=== PATIENT | male | born 1940 | race Caucasian/White ===

== ENCOUNTER 2019-01-10 13:15 | Emergency (ER) | payer OTHER ==
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
[2019-01-10] MEDS ORDERED: DIPHTH,PERTUSS(ACELL),TET 0.5 ML DISP.SYRIN IM ONE ×2 (13:44→13:55)
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
[2019-01-10 13:48] VITALS: BP 190/92; PULSE 72; TEMP 98.6; BMI 26.2
== END 2019-01-10 15:01 | disposition home or self-care (01) ==
LOC: FER 13:15
PROC: 3E0234Z Introduction of Serum, Toxoid and Vaccine into Muscle, Percutaneous Approach (ICD-10-PCS; principal; 2019-01-10)
DX: Z04.1 Encounter for examination and observation following transport accident (principal); V03.10XA Pedestrian on foot injured in collision with car, pick-up truck or van in traffic accident, initial encounter; Y93.89 Activity, other specified; Y92.410 Unspecified street and highway as the place of occurrence of the external cause
CPT/HCPCS: 70450-TC; 70486-TC; 73523-TC-FY; 90715; 99282-25